=== PATIENT | female | born 1970 | race Caucasian/White ===

== ENCOUNTER 2017-10-14 19:01 | Emergency (ER) | payer OTHER ==
[2017-10-14 19:46] VITALS: BP 127/72
--- NOTE | 2017-10-14 20:16 | UC ---
Respiratory Complaint HPI - HPI Summary HPI Summary: Pt presents with cough. She tells me that 3 days ago she developed a tickle in her throat and a dry cough. She has been taking mucinex with no relief. Denies fever, chills, SOB, ST, chest congestion, abdominal pain, N/V/D/C. She is currently breathing comfortably, but says she gets in "fits" where she can't stop coughing. The cough is most bothersome at bedtime, she is having trouble falling and staying asleep due to her persistent cough. - History of Current Complaint Chief Complaint: UCRespiratory Stated Complaint: COUGH Time Seen by Provider: 10/14/17 20:13 Hx Obtained From: Patient Hx Last Menstrual Period: NOW ?: No Onset/Duration: Gradual Onset Severity Initially: Mild Severity Currently: Mild - Allergies/Home Medications Allergies/Adverse Reactions: Allergies Allergy/AdvReac Type Severity Reaction Status Date / Time No Known Allergies Allergy Verified 10/14/17 19:46 Home Medications: Home Medications Ibuprofen TAB* [Advil TAB*] 400 mg PO PRN 10/14/17 [History] guaiFENesin ER TAB [Mucinex*] 600 mg PO PRN 10/14/17 [History] PMH/Surg Hx/FS Hx/Imm Hx Previously Healthy: Yes - Surgical History Surgical History: Yes Surgery Procedure, Year, and Place: RIGHT EYE SX. BONE GRAFT TO SKULL. WISDOM TEETH. COLONOSCOPY - Family History Known Family History: Positive: Unknown - Social History Occupation: Employed Full-time Lives: With Family Alcohol Use: Occasionally Substance Use Type: None Smoking Status (MU): Never Smoked Tobacco Have You Smoked in the Last Year: No Review of Systems Constitutional: Negative Skin: Negative Eyes: Negative ENT: Negative Respiratory: Cough Cardiovascular: Negative Gastrointestinal: Negative All Other Systems Reviewed And Are Negative: Yes Physical Exam Triage Information Reviewed: Yes Appearance: Well-Appearing, Well-Nourished Vital Signs: Initial Vital Signs Temp 98.6 F 10/14/17 19:43 Pulse 60 10/14/17 19:43 Resp 16 10/14/17 19:43 BP 127/72 10/14/17 19:43 Pulse Ox 99 10/14/17 19:43 Vital Signs Reviewed: Yes Eyes: Positive: Conjunctiva Clear. Negative: Conjunctiva Inflamed, Discharge ENT: Positive: Hearing grossly normal, Pharynx normal, TMs normal, Uvula midline. Negative: Pharyngeal erythema, Nasal congestion, Nasal drainage, TM bulging, TM dull, TM red, Tonsillar swelling, Tonsillar exudate, Sinus tenderness Neck: Positive: Supple, Nontender, No Lymphadenopathy Respiratory: Positive: Chest non-tender, Lungs clear, No respiratory distress, No accessory muscle use, Wheezing - Mild throughout.. Negative: Crackles, Rhonchi Cardiovascular: Positive: RRR, No Murmur, Pulses Normal Neurological: Positive: Alert Psychological: Positive: Age Appropriate Behavior Skin: Negative: rashes UC Diagnostic Evaluation - Laboratory O2 Sat by Pulse Oximetry: 99 Respiratory Course/Dx - Course Course Of Treatment: Bronchitis with mild wheezing throughout. Rx for tessalon during the day, albuterol 2 puffs q6hrs, and guaifenesin with codeine at bedtime. - Differential Dx/Diagnosis Differential Diagnosis/HQI/PQRI: Bronchitis, Influenza, Laryngitis, Lower Resp Infection, Pulmonary Embolism, Tuberculosis Provider Diagnoses: Bronchitis Discharge - Discharge Plan Condition: Stable Disposition: HOME Prescriptions: Albuterol HFA INHALER* [Ventolin HFA Inhaler*] 2 puff INH Q6H PRN #1 mdi PRN Reason: Cough Benzonatate CAP* [Tessalon 100 MG CAP*] 100 mg PO TID PRN #30 cap PRN Reason: Cough Guaifenesin-Codeine [Cheratussin AC 100-10 mg/5Ml] 5 ml PO BEDTIME PRN #35 ml MDD 5mL PRN Reason: Cough Patient Education Materials: Acute Bronchitis (ED) Referrals: Zen Alfaro MD [Primary Care Provider] - Additional Instructions: If you develop a fever, SOB, chest pain, new or worsening symptoms - please call your PCP or go to the ED.
== END 2017-10-14 20:30 | disposition home or self-care (01) ==
LOC: UCEAST 19:01
DX: J40 Bronchitis, not specified as acute or chronic (principal)
CPT/HCPCS: 99202; G0463

== ENCOUNTER 2018-12-20 07:04 | Emergency (ER) | payer OTHER ==
--- NOTE | 2018-12-20 07:23 | UC ---
GI Bleed HPI - HPI Summary HPI Summary: Patient Chief Complaint: nausea, vomiting, blood in stool. Pain quality: cramping Course, aggravating, relieving: Current: moderate, intermittent Location: lower abdominal, bilateral Severity: 5-8/10 MD note: Vital signs stable; orthostatic with standing. Nurses Note: pt awoke this morning with GI pain, vomiting, diarrhea, and then after she had diarrhea she saw blood in her stool. afebrile. pt states she was dizzy when rolling over this morning, and feels dehydrated. - History Of Current Complaint Stated Complaint: VOMIT BLOODY STOOLS Time Seen by Provider: 12/20/18 07:13 Hx Last Menstrual Period: NOW - Allergies/Home medications Allergies/Adverse Reactions: Allergies Allergy/AdvReac Type Severity Reaction Status Date / Time No Known Allergies Allergy Verified 12/20/18 07:18 Home Medications: Home Medications NK [No Home Medications Reported] 12/20/18 [History Confirmed 12/20/18] PMH/Surg Hx/FS Hx/Imm Hx - Additional Past Medical History Additional PMH: Review of visit history: GI complaints in the past; ? Seen yesterday. Normal physical. Review of chronic conditions: Non contributory. Medications and Allergies: No anti-coagulants. Family History: -Crohn's in mother, grandparent; also IBS SOCIAL HISTORY: Employment: [employer] professor - Surgical History Surgical History: Yes Surgery Procedure, Year, and Place: RIGHT EYE SX. BONE GRAFT TO SKULL. WISDOM TEETH. COLONOSCOPY - Family History Known Family History: Positive: Unknown - Social History Alcohol Use: Occasionally Substance Use Type: None Smoking Status (MU): Never Smoked Tobacco Have You Smoked in the Last Year: No Review of Systems All Other Systems Reviewed And Are Negative: Yes Constitutional: Positive: Negative Skin: Positive: Negative Eyes: Positive: Negative ENT: Positive: Negative Respiratory: Positive: Negative Cardiovascular: Positive: Negative Gastrointestinal: Positive: Abdominal Pain - cramping, Vomiting, Diarrhea, Nausea Genitourinary: Positive: Negative Motor: Positive: Negative Neurovascular: Positive: Negative Musculoskeletal: Positive: Negative Neurological: Positive: Negative Psychological: Positive: Negative Physical Exam - Summary Physical Exam Summary: Appearance: The patient is well-appearing, is in no pain or distress, and is well-nourished. Eyes: Conjunctiva are clear. Pupils are equal and reactive to light and accommodation. Extra ocular muscle movement is intact. ENT: The hearing is grossly normal, the pharynx is normal, and the TMs are normal. There is no muffled or hoarse voice. No stridor. Neck: The neck is supple and there is no lymphadenopathy. Respiratory: The chest is nontender to palpation and without crepitus. The lungs are clear, there are normal breath sounds, and there is no respiratory distress. No wheezes, rales or rhonchi. Cardiovascular: Heart sounds reveal a regular rate and rhythm. There are no clicks, rubs or murmurs. There are no carotid bruits or thrills. Circulation is grossly intact. Abdomen: The abdomen is soft and tender to palpation, lower abdomen. No point tenderness McBurney or left lower quadrant. Negative peritoneal signs. Musculoskeletal: Strength is intact. The patient moves all extremities. Neurological: The patient is alert. Motor and sensory are examination grossly intact. Speech is normal. Psychological: The patient displays age appropriate behavior Skin: Negative for rashes. Triage Information Reviewed: Yes Bleed Course/Dx - Course Course Of Treatment: This is a 48-year-old female in relatively good health who does have a past medical history including a colonoscopy 5 years ago for intermittent significant abdominal discomfort. Last night at approximately 4 AM she awoke from sleep had nausea vomiting and diarrhea. At that time she noted blood in the toilet bowl. She feels dehydrated and at times dizzy. In the urgent care center she was orthostatic with a blood pressure drop of 144- 107 from lying down to standing and pulse elevation of 68-82. She is in a moderate distress with lower abdominal cramping. It is clear that this patient needs further evaluation to rule out any significant gastrointestinal bleed as well as to rehydrate her and deal with her nausea and vomiting. In discussion with the patient and her , it was decided that they would drive by private car to the emergency department at [facility]. Patient is stable at the time of departure. - Differential Dx/Diagnosis Differential Diagnosis/HQI/PQRI: Crohn's Disease, Gastritis, Hemorrhoids, Ulcerative Colitis, Other - diverticulitis with bleeding; IBS Provider Diagnosis: Diarrhea Discharge - Sign-Out/Discharge Documenting (check all that apply): Patient Departure All imaging exams completed and their final reports reviewed: No Studies - Discharge Plan Condition: Stable Disposition: HOME-RECOMMEND TO ED Referrals: Bradford,Zen, MD [Primary Care Provider] - Additional Instructions: WE DISCUSSED: PLEASE SEEK CARE AT THE EMERGENCY DEPARTMENT for: 1. Gastrointestional bleeding. 2. Abdominal pain. 3. Dehydration. This could be related to possible Crohn's or there could simply be a small amount of bleeding from the diarrhea. However, it is unclear at this time how much bleeding there has been, and there is evidence of dehydration. Please go directly to the ED for further evaluation and treatment. - Billing Disposition and Condition Condition: STABLE Disposition: Home-Recommend to ED
[2018-12-20 07:30] VITALS: BP 107/77
== END 2018-12-20 07:50 | disposition home health service (06) ==
LOC: UCEAST 07:04
DX: R19.7 Diarrhea, unspecified (principal); R11.2 Nausea with vomiting, unspecified; K92.1 Melena; R42 Dizziness and giddiness; R10.31 Right lower quadrant pain; R10.32 Left lower quadrant pain
CPT/HCPCS: 99212; G0463

== ENCOUNTER 2019-07-12 17:23 | Emergency (ER) | payer OTHER ==
[2019-07-12 17:33] VITALS: BP 117/81
[2019-07-12] MEDS ORDERED: Sulfamethox/Trimethoprim DS 800/160* TAB PO ONE (18:04)
--- NOTE | 2019-07-12 18:14 | UC ---
Complaint Female HPI - HPI Summary HPI Summary: 3 DAYS OF LOWER ABDOMINAL PAIN, URINARY FREQUENCY, URGENCY AND DYSURIA. NO FEVER, BACK PAIN OR NAUSEA. - History Of Current Complaint Chief Complaint: UCGU Stated Complaint: POSS UTI Time Seen by Provider: 07/12/19 17:45 Hx Obtained From: Patient Hx Last Menstrual Period: one week ago Onset/Duration: Gradual Onset, Lasting Days, Still Present Severity Initially: Moderate Severity Currently: Moderate Pain Intensity: 2 Pain Scale Used: 0-10 Numeric Character: Burning Aggravating Factor(s): Urination Alleviating Factor(s): Nothing Associated Signs And Symptoms: Positive: Negative - Allergies/Home Medications Allergies/Adverse Reactions: Allergies Allergy/AdvReac Type Severity Reaction Status Date / Time No Known Allergies Allergy Verified 07/12/19 17:34 PMH/Surg Hx/FS Hx/Imm Hx Previously Healthy: Yes - Surgical History Surgical History: Yes Surgery Procedure, Year, and Place: RIGHT EYE SX. BONE GRAFT TO SKULL. WISDOM TEETH. COLONOSCOPY in 2013 - Family History Known Family History: Positive: Other - Mother had Crohn's disease, grandfather had IBS - Social History Alcohol Use: Occasionally Substance Use Type: None Smoking Status (MU): Never Smoked Tobacco Have You Smoked in the Last Year: No Review of Systems All Other Systems Reviewed And Are Negative: Yes Constitutional: Positive: Negative Respiratory: Positive: Negative Cardiovascular: Positive: Negative Gastrointestinal: Positive: Abdominal Pain Genitourinary: Positive: Dysuria, Frequency, Urgency Physical Exam Triage Information Reviewed: Yes Appearance: Well-Appearing, No Pain Distress, Well-Nourished Vital Signs: Initial Vital Signs Temp 98.2 F 07/12/19 17:30 Pulse 65 07/12/19 17:30 Resp 12 07/12/19 17:30 BP 117/81 07/12/19 17:30 Pulse Ox 99 07/12/19 17:30 Laboratory Tests 07/12/19 07/12/19 17:44 17:45 POC Urine Color Yellow POC Urine Clarity Clear POC Urine pH 5.0 POC Ur Specif [place] 1.020 POC Urine Protein Negative POC Ur Glucose (UA) Negative POC Urine Ketones Negative POC Urine Blood Negative POC Urine Nitrite Negative POC Urine Bilirubin Negative POC Urine Urobilinogen 0.2 POC U Leukocyte Esteras Trace A POC Ur Test Negative Vital Signs Reviewed: Yes Eyes: Positive: Conjunctiva Clear ENT: Positive: Hearing grossly normal Neck: Positive: Supple Respiratory: Positive: No respiratory distress, No accessory muscle use Cardiovascular: Positive: Pulses Normal Abdomen Description: Positive: Soft. Negative: CVA Tenderness (R), CVA Tenderness (L), Distended, Guarding Musculoskeletal: Positive: No Edema Neurological: Positive: Alert Psychological: Positive: Age Appropriate Behavior Skin: Negative: Rashes Complaint Female Dx - Differential Dx/Diagnosis Provider Diagnosis: UTI (urinary tract infection) Discharge ED - Sign-Out/Discharge Documenting (check all that apply): Patient Departure All imaging exams completed and their final reports reviewed: No Studies - Discharge Plan Condition: Stable Disposition: HOME Prescriptions: Sulfamethox/Trimethoprim DS* [Bactrim DS 800/160 TAB*] 1 tab PO BID #8 tab Patient Education Materials: Urinary Tract Infection in Women (ED) Referrals: Zen Alfaro MD [Primary Care Provider] - If Needed Additional Instructions: TAKE THE ANTIBIOTIC TWICE DAILY FOR THE FULL 5 DAYS. STAY WELL HYDRATED. YOUR URINE HAS BEEN SENT FOR CULTURE. WE WILL CALL YOU IF YOUR MEDICATION NEEDS TO BE CHANGED. - Billing Disposition and Condition Condition: STABLE Disposition: Home
== END 2019-07-12 18:15 | disposition home or self-care (01) ==
LOC: UCEAST 17:23
DX: N39.0 Urinary tract infection, site not specified (principal)
CPT/HCPCS: 81003; 84702; 87077; 87086; 87186; 99212; A9270-GY; G0463